=== PATIENT | female | born 1965 | race Caucasian/White ===

== ENCOUNTER 2023-08-31 01:21 | Emergency (ER) | payer MEDICARE ==
[2023-08-31 02:10] LABS: Bilirubin Negative (Negative); Blood, Urine Large (Negative); Clarity Cloudy (Clear); Glucose, Urine (Dipstick) Negative (Negative); Ketone, Urine Negative (Negative); Leukocyte Large (Negative); Nitrite Positive (Negative); Protein, Urine (Dipstick) 100 mg/dL (Neg-Trace); Urobilinogen 0.2 mg/dL (Less than 2)
[2023-08-31] MEDS ORDERED: Ketorolac Tromethamine 30 MG (1 mL) VIAL ONE (02:28)
[2023-08-31] MEDS ORDERED: cefTRIAXone (ROCEPHIN) 250 MG VIAL ONE (02:28)
[2023-08-31 02:31] LABS: Bacteria/HPF Rare-Few HPF (None Seen); CAUTI Indications for Culture Dysuria,urgency,freq; RBC/HPF 21-50 HPF (0-3); WBC/HPF 21-50 HPF (0-3)
[2023-08-31 05:40] LABS: Urine Culture Reflex Yes Yes
== END 2023-08-31 03:15 | disposition home or self-care (01) ==
LOC: BURERS 01:21
DX: N39.0 Urinary tract infection, site not specified (principal); E11.9 Type 2 diabetes mellitus without complications; Z79.84 Long term (current) use of oral hypoglycemic drugs
CPT/HCPCS: 81001; 87077; 87086; 87186; 96372; 99283; J0696; J1885

== ENCOUNTER 2023-12-30 14:41 | Emergency (ER) | payer MEDICARE, MEDICAID ==
[2023-12-30] MEDS ORDERED: Famotidine 20 MG TAB ONE (15:32)
[2023-12-30] MEDS ORDERED: predniSONE 20 MG TAB ONE (15:33)
== END 2023-12-30 15:39 | disposition home or self-care (01) ==
LOC: BURERS 14:41
DX: T78.3XXA Angioneurotic edema, initial encounter (principal); E11.9 Type 2 diabetes mellitus without complications; E78.00 Pure hypercholesterolemia, unspecified; I10 Essential (primary) hypertension; Z79.82 Long term (current) use of aspirin; Z79.84 Long term (current) use of oral hypoglycemic drugs; Z79.899 Other long term (current) drug therapy
CPT/HCPCS: 99283; J7512

== ENCOUNTER 2025-01-14 21:31 | Emergency (ER) | payer MEDICARE | END 2025-01-14 22:30 | disposition home or self-care (01) | LOC: BURERS 21:31 | DX: Z48.00 Encounter for change or removal of nonsurgical wound dressing (principal); E11.9 Type 2 diabetes mellitus without complications; I10 Essential (primary) hypertension; Z55.6 Problems related to health literacy | CPT/HCPCS: 99282 ==

== ENCOUNTER 2025-03-22 20:37 | Emergency (ER) | payer MEDICARE, OTHER ==
[2025-03-22] MEDS ORDERED: Tetracaine 0.5% PF 4 ML BOT ONE (22:05)
[2025-03-22] MEDS ORDERED: Fluorescein Opthalmic Strip ONE (22:21)
== END 2025-03-22 22:30 | disposition home or self-care (01) ==
LOC: BURERS 20:37
DX: T65.891A Toxic effect of other specified substances, accidental (unintentional), initial encounter (principal); H10.211 Acute toxic conjunctivitis, right eye; E11.9 Type 2 diabetes mellitus without complications; I10 Essential (primary) hypertension
CPT/HCPCS: 99283